=== PATIENT | male | born 1995 | race Caucasian/White ===

== ENCOUNTER 2016-08-27 09:46 | Emergency (ER) | payer OTHER ==
[2016-08-27] MEDS ORDERED: Naproxen TAB* 250 MG PO ONE (10:31)
--- NOTE | 2016-08-27 10:57 | RAD ---
INDICATION: Right hand injury after punching a wall COMPARISON: None TECHNIQUE: AP, lateral, and oblique views were obtained. FINDINGS: There is a mildly angulated transverse fracture through the mid diaphysis of the fifth metacarpal. There are no other fractures. The articular relationships are maintained. There is soft tissue swelling over the dorsum of the hand IMPRESSION: ANGULATED FIFTH METACARPAL FRACTURE.
--- NOTE | 2016-08-27 11:01 | UC ---
Hand/Wrist HPI - HPI Summary HPI Summary: The patient comes in today for: 1. Right hand pain: Onset: 2 nights ago. Palliative/provocative: Movement and pressure to affected area makes it worse. Quality: Pulled muscle pain, sharp Region: Medial palm area. Severity: 610 Time: Constant. Associated symptoms: Previous treatment: None. EVent: He punched a wall. * - History Of Current Complaint Stated Complaint: RIGHT HAND INJURY Time Seen by Provider: 08/27/16 10:29 Hx Obtained From: Patient, Family/Political Advisor - Allergies/Home Medications Allergies/Adverse Reactions: Allergies Allergy/AdvReac Type Severity Reaction Status Date / Time No Known Allergies Allergy Verified 08/27/16 10:31 PMH/Surg Hx/FS Hx/Imm Hx Previously Healthy: No Respiratory History: Asthma - HE has not taken his albuterol for a year. - Surgical History Surgical History: Yes Surgery Procedure, Year, and Place: R leg- pins. tonsilectomy - Family History Known Family History: Positive: Hypertension Negative: Diabetes - Social History Occupation: Employed Full-time Alcohol Use: Occasionally Substance Use Type: None Smoking Status (MU): Light Every Day Tobacco Smoker Type: Cigarettes Amount Used/How Often: 1 pack q3 days Review of Systems Constitutional: Negative Skin: Negative Eyes: Negative ENT: Negative Respiratory: Negative Cardiovascular: Negative Musculoskeletal: Arthralgia All Other Systems Reviewed And Are Negative: Yes Physical Exam Triage Information Reviewed: Yes Appearance: Well-Appearing, No Pain Distress, Well-Nourished Vital Signs: Initial Vital Signs Temp 98 F 08/27/16 10:31 Pulse 87 08/27/16 10:31 Resp 18 08/27/16 10:31 BP 166/86 08/27/16 10:31 Pulse Ox 98 08/27/16 10:31 Vital Signs Reviewed: Yes Eyes: Positive: Conjunctiva Clear. Negative: Discharge ENT: Positive: Hearing grossly normal. Negative: Pharyngeal erythema, Nasal congestion, Nasal drainage, TM bulging, TM dull, TM red, Tonsillar swelling, Tonsillar exudate Dental: Negative: Gross Decay/Caries @, Dental Fracture @ Neck: Positive: Supple, Nontender, No Lymphadenopathy. Negative: Nuchal Rigidity Respiratory: Positive: Chest non-tender, Lungs clear, No respiratory distress, No accessory muscle use. Negative: Crackles, Wheezing Cardiovascular: Positive: RRR, No Murmur Abdomen Description: Positive: Nontender, No Organomegaly, Soft. Negative: Guarding Musculoskeletal: Positive: Other: - Right hand: There is mild edema and tenderness of the right fifth metacarpal area. No ecchymosis. He has good range of motion of the fingers except he can't make a fist. Neurological: Positive: Alert, Muscle Tone Normal Psychological: Positive: Age Appropriate Behavior, Consolable Skin: Negative: rashes, breakdown Diagnostics - Radiology No standard instances Xray Interpretation: Positive (See Comments) - IMPRESSION: ANGULATED FIFTH METACARPAL FRACTURE. Radiology Interpretation Completed By: Radiologist Hand/Wrist Course/Dx - Differential Dx/Diagnosis Differential Diagnosis/HQI/PQRI: Cellulitis, Fracture, Sprain Provider Diagnoses: Fracture of the right fifth metacarpal. Discharge - Discharge Plan Condition: Stable Disposition: HOME Patient Education Materials: Boxer Fracture (ED) Referrals: Tyson Negro MD [Medical Doctor] - 1 Day (Please call Dr. Negro's office tomorrow for a follow-up appointment. IF you get worse, please been seen again. )
[2016-08-27 11:53] VITALS: BP 122/75
== END 2016-08-27 11:51 | disposition home or self-care (01) ==
LOC: UCCORT 09:46
DX: S62.306A Unspecified fracture of fifth metacarpal bone, right hand, initial encounter for closed fracture (principal); W22.09XA Striking against other stationary object, initial encounter; F17.210 Nicotine dependence, cigarettes, uncomplicated
CPT/HCPCS: 26755; 99203; A9270-GY; G0463